=== PATIENT | female | born 1980 | race Caucasian/White ===

== ENCOUNTER 2016-11-28 19:07 | Emergency (ER) | payer MEDICAID ==
[~2016-11-28] VITALS: Ht 165.1 cm; Wt 110.8 kg
[2016-11-28 19:10] VITALS: BP 133/95
--- NOTE | 2016-11-28 20:33 | NUR ---
Patient ambulated back from US to lobby with [employer].
--- NOTE | 2016-11-28 20:55 | NUR ---
PATIENT PRESENTS TO ED WITH c/o upper abd pain . PT DENIES N/V/D; SKIN IS PINK/WARM/DRY; AAOX4 WITH EVEN AND STEADY GAIT; LUNGS CLEAR BL; HR EVEN AND REGULAR; PT DENIES ANY FEVER, CP, SOB, OR COUGH AT THIS TIME; PATIENT STATES PAIN OF 9/10 AT THIS TIME; VSS; PATIENT POSITIONED FOR COMFORT; HOB ELEVATED; BEDRAILS UP X2; BED DOWN. ER MD MADE AWARE OF PT STATUS.
[2016-11-28] MEDS ORDERED: NACL 0.9% 500 ML IV ONE (21:01)
[2016-11-28] MEDS ORDERED: KETOROLAC 30 MG/ML VIAL IVP ONE (21:05)
[2016-11-28] MEDS ORDERED: ONDANSETRON 4 MG/2 ML VIAL IVP ONE (21:05)
--- NOTE | 2016-11-28 21:11 | NUR ---
Patient to bed 06.
--- NOTE | 2016-11-28 21:14 | NUR ---
Dr. Baldreas evaluating patient at bedside.
[2016-11-28 21:40] LABS: BASOPHILS # (AUTO) 0.3 K/uL (0.00-0.22); BASOPHILS % (AUTO) 2.4 % (0.0-2.0); EOSINOPHILS # (AUTO) 0.3 K/uL (0-0.4); EOSINOPHILS % (AUTO) 3.1 % (0.0-4.0); HEMATOCRIT 39.2 % (36-48); HEMOGLOBIN 13.2 g/dL (12.0-16.0); LYMPHOCYTES # (AUTO) 1.8 K/uL (2.5-16.5); LYMPHOCYTES % (AUTO) 16.7 % (20.5-51.1); MEAN CORPUSCULAR HEMOGLOBIN 28 pg (27-31); MEAN CORPUSCULAR HGB CONC 34 g/dL (33-37); MEAN CORPUSCULAR VOLUME 84 fL (80-94); MONOCYTES # (AUTO) 0.5 K/uL (0.8-1.0); MONOCYTES % (AUTO) 4.2 % (1.7-9.3); NEUTROPHILS # (AUTO) 8.1 K/uL (1.8-7.7); NEUTROPHILS % (AUTO) 73.6 % (42.2-75.2); PLATELET COUNT (AUTO) 244 K/uL (140-450); RED BLOOD CELL COUNT(AUTO) 4.69 MIL/uL (4.20-5.40); RED CELL DISTRIBUTION WIDTH 12.3 % (11.6-13.7)
[2016-11-28 22:07] LABS: ALBUMIN 3.4 g/dL (3.4-5.0); ANION GAP 10.1 (8-16); CARBON DIOXIDE 27.1 mmol/L (21-32); CREATININE 0.6 mg/dL (0.6-1.3); POTASSIUM 4.2 mmol/L (3.5-5.1); TOTAL BILIRUBIN 0.2 mg/dL (0.0-1.0)
[2016-11-28 22:30] VITALS: BP 133/95
--- NOTE | 2016-11-28 22:30 | NUR ---
Patient discharged with v/s stable. Written and verbal after care instructions given and explained. Patient alert, oriented and verbalized understanding of instructions. Ambulatory with steady gait. All questions addressed prior to discharge. ID band removed. Patient advised to follow up with PMD. Rx of tramadol and zofran given. Patient educated on indication of medication including possible reaction and side effects. Opportunity to ask questions provided and answered.
== END 2016-11-28 22:30 | disposition home or self-care (01) ==
LOC: MED 19:07
DX: K80.20 Calculus of gallbladder without cholecystitis without obstruction (principal)
CPT/HCPCS: 36415; 76705; 80053; 81025; 83690; 85025; 96361; 96374; 96375; 99285; J1885; J2405; J7030; Q0092

== ENCOUNTER 2017-03-26 20:23 | Emergency (ER) | payer MEDICAID ==
[~2017-03-26] VITALS: Ht 160 cm; Wt 81.6 kg
[2017-03-26 21:03] VITALS: BP 116/60
--- NOTE | 2017-03-26 21:06 | NUR ---
TO LOBBY ,AMB, VSS. STABLE NORESP DISTRESS
--- NOTE | 2017-03-27 01:17 | NUR ---
Patient to [facility]. RN evaluating patient.
--- NOTE | 2017-03-27 01:20 | NUR ---
37/F CAME IN W C/O NASAL CONGESTION/RAYA, VOMITING X 1 AND COUGH X 2 DAYS. DENIES FEVER, N/V/D AT THIS TIME. ALL LUNG SOUNDS CBTA, 20 RR EVEN AND UNLABORED, WITH NASAL CONGESTION. SATS 99% ON RA. DENIES OTHER PMH/RX, TOOK TYLENOL AT 1300 YESTERDAY, REPORTS RELIEF OF SYMPTOMS.
[2017-03-27] MEDS ORDERED: IBUPROFEN 800 MG TAB PO ONE (02:45)
--- NOTE | 2017-03-27 03:10 | NUR ---
Patient discharged with v/s stable. Written and verbal after care instructions given and explained. Patient alert, oriented and verbalized understanding of instructions. Ambulatory with to car. All questions addressed prior to discharge. ID band removed. Patient advised to follow up with PMD. Rx of CODEINE AND IBUPROFEN given. Patient educated on indication of medication including possible reaction and side effects. Opportunity to ask questions provided and answered.
[2017-03-27 03:13] VITALS: BP 128/64
== END 2017-03-27 03:10 | disposition home or self-care (01) ==
LOC: MED 20:23
DX: J06.9 Acute upper respiratory infection, unspecified (principal); Z90.89 Acquired absence of other organs
CPT/HCPCS: 71010; 99283

== ENCOUNTER 2019-01-13 19:52 | Emergency (ER) | payer MEDICAID ==
[~2019-01-13] VITALS: Ht 162.6 cm; Wt 108.9 kg
[2019-01-13 20:13] VITALS: BP 133/82
[2019-01-13 21:11] LABS: BASOPHILS % (AUTO) 0.3 % (0.0-2.0); EOSINOPHILS # (AUTO) 0.2 K/uL (0-0.4); EOSINOPHILS % (AUTO) 1.6 % (0.0-4.0); LYMPHOCYTES # (AUTO) 1.4 K/uL (2.5-16.5); LYMPHOCYTES % (AUTO) 14.6 % (20.5-51.1); MEAN CORPUSCULAR HEMOGLOBIN 29 pg (27-31); MEAN CORPUSCULAR HGB CONC 33 g/dL (33-37); MEAN CORPUSCULAR VOLUME 85.7 fL (80-94); MONOCYTES # (AUTO) 0.6 K/uL (0.8-1.0); NEUTROPHILS # (AUTO) 7.6 K/uL (1.8-7.7); NEUTROPHILS % (AUTO) 77.5 % (42.2-75.2); PLATELET COUNT (AUTO) 266 K/uL (140-450); RED BLOOD CELL COUNT(AUTO) 4.55 MIL/uL (4.20-5.40); RED CELL DISTRIBUTION WIDTH 13.3 % (11.6-13.7); WHITE BLOOD COUNT (AUTO) 9.8 K/uL (4.8-10.8)
[2019-01-13 21:58] LABS: POTASSIUM 3.9 mmol/L (3.5-5.1)
[2019-01-13 21:59] LABS: ALBUMIN 3.3 g/dL (3.4-5.0); ANION GAP 13.1 (8-16); CARBON DIOXIDE 25.8 mmol/L (21-32); CREATININE 0.6 mg/dL (0.6-1.3); TOTAL BILIRUBIN 0.4 mg/dL (0.0-1.0)
[2019-01-13] MEDS ORDERED: KETOROLAC 30 MG/ML VIAL IVP ONE (22:25)
[2019-01-13] MEDS ORDERED: NACL 0.9% 1,000 ML IV ONE (22:25)
[2019-01-13] MEDS ORDERED: ONDANSETRON 4 MG/2 ML VIAL IVP ONE (22:25)
[2019-01-14] MEDS ORDERED: MORPHINE SULFATE 2 MG/ML SYR IVP ONE (00:45)
[2019-01-14 01:38] VITALS: BP 106/71
== END 2019-01-14 01:38 | disposition home or self-care (01) ==
LOC: MED 19:52
DX: K80.20 Calculus of gallbladder without cholecystitis without obstruction (principal); K29.70 Gastritis, unspecified, without bleeding; Z90.49 Acquired absence of other specified parts of digestive tract; Z98.890 Other specified postprocedural states
CPT/HCPCS: 36415; 74176; 80053; 81002; 81025; 83690; 85025; 96361; 96374; 96375; 99284; J1885; J2270; J2405; J7030

== ENCOUNTER 2022-01-04 14:15 | Emergency (ER) | payer MEDICAID, OTHER ==
[~2022-01-04] VITALS: Ht 157.5 cm; Wt 106.6 kg
[2022-01-04 14:39] VITALS: BP 116/67
[2022-01-04] MEDS ORDERED: LIDOCAINE MPF 1% 10 MG/ML VIAL INJ ONE ×2 (16:25→17:55)
[2022-01-04] MEDS ORDERED: IBUP-2809 PO (17:51)
[2022-01-04] MEDS ORDERED: IBUPROFEN 600 MG TAB PO ONE (18:00)
[2022-01-04 18:10] VITALS: BP 132/76
== END 2022-01-04 18:12 | disposition home or self-care (01) ==
LOC: MED 14:15
DX: L60.0 Ingrowing nail (principal); Z79.899 Other long term (current) drug therapy
CPT/HCPCS: 11730; 99284; J2001